=== PATIENT | female | born 1985 | race Caucasian/White ===

== ENCOUNTER 2024-04-08 16:38 | Emergency (ER) | payer OTHER ==
[2024-04-08 16:42] VITALS: BP 117/75; PULSE 85; RESP 18; TEMP 98.1
--- NOTE | 2024-04-08 17:14 | ED ---
General Adult HPI - General Chief complaint: Recheck/Abnormal Lab/Rx Stated complaint: meds Time Seen by Provider: 04/08/24 16:46 Source: patient Mode of arrival: ambulatory Limitations: no limitations - History of Present Illness Initial comments: 38-year-old female presenting for medication refill. Patient is here from [place] she currently takes gabapentin 600 mg 4 times daily. States that she restarted this medication after complications after . She has been out for few days and states that her primary care provider from [place] is unable to send the medication to [place]. Because she has been out for few days she started to feel generally achy.. She has no other complaints. - Related Data Previous Rx's Medication Instructions Recorded Gabapentin 600 mg PO QID 3 Days #12 tab 04/08/24 Allergies Allergy/AdvReac Type Severity Reaction Status Date / Time No Known Allergies Allergy Verified 04/08/24 16:41 Review of Systems ROS Statement: Those systems with pertinent positive or pertinent negative responses have been documented in the HPI. ROS Other: All systems not noted in ROS Statement are negative. Past Medical History Additional Past Medical History / Comment(s): Nerve pain History of Any Multi-Drug Resistant Organisms: None Reported Past Surgical History: No Surgical Hx Reported Past Psychological History: No Psychological Hx Reported Smoking Status: Never smoker Past Alcohol Use History: None Reported Past Drug Use History: None Reported General Exam Limitations: no limitations General appearance: alert, in no apparent distress Head exam: Present: atraumatic, normocephalic Eye exam: Present: normal appearance, EOMI Neck exam: Present: normal inspection. Absent: meningismus Respiratory exam: Absent: respiratory distress Cardiovascular Exam: Present: regular rate Neurological exam: Present: alert, oriented X3 Psychiatric exam: Present: normal affect, normal mood Skin exam: Present: warm, dry Course Vital Signs 04/08/24 16:39 Temperature 98.1 F Pulse Rate 85 Respiratory 18 Rate Blood Pressure 117/75 O2 Sat by Pulse 99 Oximetry Medical Decision Making - Medical Decision Making Was pt. sent in by a medical professional or institution (, PA, FRONT OFFICE HELP, urgent care, hospital, or senior care...) When possible be specific @ -No Did you speak to anyone other than the patient for history (EMS, parent, family, police, friend...)? What history was obtained from this source @ -No Did you review nursing and triage notes (agree or disagree)? Why? @ -I reviewed and agree with nursing and triage notes Were old charts reviewed (outside hosp., previous admission, EMS record, old EKG, old radiological studies, urgent care reports/EKG's, senior care records)? Report findings @ -No old charts were reviewed Differential Diagnosis (chest pain, altered mental status, abdominal pain women, abdominal pain men, vaginal bleeding, weakness, fever, dyspnea, syncope, headache, dizziness, GI bleed, back pain, seizure, CVA, palpatations, mental health, musculoskeletal)? @ -Not applicable EKG interpreted by me (3pts min.). @ -As above X-rays interpreted by me (1pt min.). @ -None done CT interpreted by me (1pt min.). @ -None done U/S interpreted by me (1pt. min.). @ -None done What testing was considered but not performed or refused? (CT, X-rays, U/S, labs)? Why? @ -None What meds were considered but not given or refused? Why? @ -None Did you discuss the management of the patient with other professionals (professionals i.e. , PA, FRONT OFFICE HELP, lab, RT, psych nurse, social services coordinator, affirmative action specialist, teacher, strike warfare/missile systems officer, manager of case)? Give summary @ -No Was smoking cessation discussed for >3mins.? @ -No Was critical care preformed (if so, how long)? @ -No Were there social determinants of health that impacted care today? How? (Homelessness, low income, unemployed, alcoholism, drug addiction, transportation, low edu. Level, literacy, decrease access to med. care, [facility], rehab)? @ -No Was there de-escalation of care discussed even if they declined (Discuss DNR or withdrawal of care, Hospice)? DNR status @ -No What co-morbidities impacted this encounter? (DM, HTN, Smoking, COPD, CAD, Cancer, CVA, ARF, Chemo, Hep., AIDS, mental health diagnosis, sleep apnea, morbid obesity)? @ -None Was patient admitted / discharged? Hospital course, mention meds given and route, prescriptions, significant lab abnormalities, going to OR and other pertinent info. @ -38-year-old female requesting a medication refill. Unable to get a refill as she is from [place]. Refill sent for gabapentin 600 mg 4 times daily for 3 days. Instructed to follow-up with her PCP and provided suggestions. Discharged home. Patient is agreeable with the plan and conveyed verbal understanding. I discussed this case with my attending Dr. Wilde Undiagnosed new problem with uncertain prognosis? @ -No Drug Therapy requiring intensive monitoring for toxicity (Heparin, Nitro, Insulin, Cardizem)? @ -No Were any procedures done? @ -No Diagnosis/symptom? @ -Encounter for medication refill Acute, or Chronic, or Acute on Chronic? @ -Acute Uncomplicated (without systemic symptoms) or Complicated (systemic symptoms)? @ -uncomplicated Side effects of treatment? @ -No Exacerbation, Progression, or Severe Exacerbation? @ -No Poses a threat to life or bodily function? How? (Chest pain, [place], [place], pneumonia, PE, COPD, DKA, ARF, appy, cholecystitis, CVA, Diverticulitis, Homicidal, Suici mike, threat to staff... and all critical care pts) @ -No Disposition Clinical Impression: Encounter for medication refill Disposition: HOME SELF-CARE Condition: Good Instructions (If sedation given, give patient instructions): Gabapentin (By mouth) Additional Instructions: Provided some suggestions for PCPs to follow-up with Prescriptions: Gabapentin 600 mg PO QID 3 Days #12 tab Is patient prescribed a controlled substance at d/c from ED?: No Referrals: Krysta Stringer MD [STAFF PHYSICIAN] - 1-2 days Christiano Hathaway MD [STAFF PHYSICIAN] - 1-2 days Hever Lozano MD [STAFF PHYSICIAN] - 1-2 days Miriam Amezcua NPC [STAFF PHYSICIAN] - 1-2 days Time of Disposition: 17:13
== END 2024-04-08 17:34 | disposition home or self-care (01) ==
LOC: EC 16:38
DX: Z76.0 Encounter for issue of repeat prescription (principal)
CPT/HCPCS: 99282